=== PATIENT | female | born 1955 | race Two or more races ===

== ENCOUNTER 2020-11-29 04:45 | Day surgery (SDC) | payer OTHER ==
[~2020-11-29 04:45] MED LIST: BRIMONIDINE 0.110 ML OP; FOLIC ACID0.8 M1 PO; METFORMIN HCL1000 M2 PO; SIMVASTATIN10 MG PO; SYNTHROID75 MCG PO
[2020-11-29] MEDS ORDERED: MACROBID 100 M100 MG PO (09:01)
[2020-11-29] MEDS ORDERED: ULTRACET PO (09:01)
== END 2020-11-29 15:25 | disposition home or self-care (01) ==
LOC: CIR.AMB 04:45
PROVIDERS: ATTEND Obstetrics & Gynecology Gynecology
DX: N81.3 Complete uterovaginal prolapse (principal); Z20.828 Contact with and (suspected) exposure to other viral communicable diseases